=== PATIENT | female | born 1975 | race Caucasian/White ===

== ENCOUNTER → 2024-04-09 08:22 | Outpatient (REF) | payer OTHER, SELFPAY | LOC: HWRAD 08:22 | PROVIDERS: ATTENDING PHYSICIAN Internal Medicine; FAMILY PHYSICIAN Emergency Medicine | DX: K90.0 Celiac disease (principal); E55.9 Vitamin D deficiency, unspecified | CPT/HCPCS: 77080 ==

== ENCOUNTER → 2024-04-28 19:25 | Outpatient (REF) | payer OTHER, SELFPAY | LOC: WDC 19:25 | PROVIDERS: ATTENDING PHYSICIAN Obstetrics & Gynecology; FAMILY PHYSICIAN Family Medicine | DX: Z12.31 Encounter for screening mammogram for malignant neoplasm of breast (principal) | CPT/HCPCS: 77063; 77067 ==

== ENCOUNTER → 2024-10-02 10:02 | Outpatient (REF) | payer OTHER, SELFPAY ==
[2024-10-02 14:14] LABS: Hepatitis B Surface Antibody Positive
[2024-10-04 18:25] LABS: Quantiferon Mitogen minus NIL 9.97 IU/mL; Quantiferon NIL 0.03 IU/mL; Quantiferon Plus TB1 minus NIL 0.01 IU/mL (<=0.34); Quantiferon TB Gold Plus Negative (Negative)
== END ==
LOC: OHS 10:02
PROVIDERS: ATTENDING PHYSICIAN Nurse Practitioner Family
DX: Z23 Encounter for immunization (principal)
CPT/HCPCS: 36415; 86480; 86706; 86787

== ENCOUNTER 2025-04-02 02:16 | Emergency (ER) | payer OTHER, SELFPAY ==
[2025-04-02 02:21] VITALS: BP 160/108
[2025-04-02 02:37] LABS: Hematocrit 41.8 % (37.0-47.0); Hemoglobin 13.8 g/dL (12.0-16.0); Mean Corp Hgb Conc. 33.0 g/dL (33.0-37.0); Mean Corpuscular Volume 84.8 fL (81.0-99.0); Nucleated Red Blood Cells % 0 %; Platelet Count 311 10^3/uL (130-400); Red Cell Dist. Width 13.2 % (11.5-14.5)
[2025-04-02 03:00] LABS: ALT (SGPT) 30 U/L (0-35); AST (SGOT) 27 U/L (14-36); Albumin 4.7 g/dl (3.5-5.0); Alkaline Phosphatase 57 U/L (38-126); Blood Urea Nitrogen 16 mg/dl (7-17); Calcium 10.2 mg/dl (8.4-10.2); Carbon Dioxide 31 mmol/L (22-30); Chloride 104 mmol/L (98-107); Glucose 114 mg/dl (70-99); Potassium 4.0 mmol/L (3.5-5.1); Sodium 141 mmol/L (135-145); Total Protein 8.2 g/dl (6.3-8.2); eGFR > 60.00
[2025-04-02 03:07] VITALS: BP 153/71
[2025-04-02 03:13] LABS: Troponin I < 0.012 ng/ml
[2025-04-02 03:58] VITALS: BMI 33.4
[2025-04-02 04:00] VITALS: BP 118/63
--- NOTE | 2025-04-02 04:01 | ED.GENMED ---
History of Present Illness
General
Chief Complaint: Blood Pressure Problem
Source: patient
Exam Limitations: none
Time Seen by Provider: 04/02/25 03:05
Nursing documentation reviewed up to this point in time: agreed with
History of Present Illness
History of Present Illness:
49-year-old female past medical history of high blood pressure presenting to the emergency department today with concerns of elevated blood pressure today. She felt jittery at work and checked her blood pressure which was elevated to 170s over low
100s. She then rechecked her pressure multiple times which was ongoing the elevated and presented to an urgent care. She had elevated number there as well. She was prescribed lisinopril and took the first dose tonight. Tonight she has had
ongoing vague symptoms and a short episode of chest discomfort described as achiness to the left side. She denies specifically any shortness of breath nausea vomiting numbness weakness.
Review of Systems
Review of Systems
Allergies reviewed?: Yes
All Other Systems: ROS reviewed and negative except as documented in HPI and ROS
Phy Exam
Physical Exam
Physical Exam:
GENERAL: Alert , in no apparent distress
EYE: pupils equal and reactive
NECK: Supple, no significant adenopathy.
ENT: o/p clr, mmm.
CARDIAC: Regular rate and rhythm .
LUNGS: Clear breath sounds bilaterally, no acute respiratory distress, no wheezes/rales/rhonchi
ABDOMEN: Soft, without focal tenderness, no r/g, no cvat
NEUROLOGICAL: Alert and oriented, no focal neuro deficits
SKIN: Warm and dry, skin intact.
MUSCULOSKELETAL: No edema, well perfused.
PSYCH: Normal and appropriate interaction.
Course
Orders/Labs/Results
Orders:
Orders
04/02/25 02:16
Electrocardiogram (*1) Urgent
Reason for Study: Chest Pain
EKG- Treatment ONCE
04/02/25 02:30
Complete Blood Count/With Diff Urgent
Comprehensive Metabolic Panel Urgent
TSH Reflex To Free T4 Urgent
Comment: ADD ON
Troponin I Urgent
04/02/25 03:06
Chest [CR Chest - 2 Views ] Urgent
Comment:
Reason For Exam: cp
04/02/25 03:21
Add On- LAB Urgent
Tests Added?: tsh free t4
Abnormal Lab Results
04/02/25
02:30
Absolute Monos (auto) 0.7 H 10^3/uL
(0.1-0.6)
Eosinophils % 7.1 H %
(0-6)
Carbon Dioxide 31 H mmol/L
(22-30)
Glucose 114 H mg/dl
(70-99)
04/02/25 02:30
04/02/25 02:30
Vital Signs
Initial and Last Documented VS:
Initial Vital Signs
Temp Pulse Resp BP Pulse Ox
98.5 F 92 20 160/108 99
04/02/25 02:21 04/02/25 02:21 04/02/25 02:21 04/02/25 02:21 04/02/25 02:21
Last Documented Vital Signs
Temp Pulse Resp BP Pulse Ox
98.5 F 77 16 121/74 96
04/02/25 02:21 04/02/25 05:00 04/02/25 05:00 04/02/25 05:00 04/02/25 05:13
MDM/Problems Addressed
MDM/Problems Addressed:
49-year-old female presenting with concerns of vague symptoms throughout the day today with elevated blood pressure readings as well. Went to urgent care was prescribed lisinopril and this medication once today. Has been feeling 'jittery'. On
arrival here blood pressure elevated to 160s over low 100s. This was in the 140s over 70s. Patient in no distress with normal heart and lung exam labs are unremarkable troponin negative chest x-ray normal and EKG normal. Labs unremarkable
troponin negative no evidence of any emergent process stable for outpatient follow-up. Return precautions given.
*Pulse Oximetry
SaO2: 99
Oxygen Mode of Delivery: Room air
Patient hypoxic: no (96)
*Critical Care Note
Total Time (30-74mins, 75-104mins- exclusive of procedures): Not Applicable
ED Attending Note
-
Portions of this chart may have been created with voice recognition software.� Occasional wrong word or��sound alike� substitutions may have occurred due to the inherent limitations of voice recognition software.
Discharge Plan
Departure
Patient Disposition: Home (Routine Discharge)
Date of Disposition: 04/02/25
Time of Disposition: 05:51
Patient with high blood pressure during this ER visit?: No
Condition: Good
Covid-19: Not Applicable
Discharge Problem:
High blood pressure, Chest pain
Instructions: Chest Pain DCA Follow Up
Referrals:
Zev Rowan DO [Family Provider, Family Practice]
Activity Restrictions/Additional Instructions:
You came to the emergency department today with concerns of an elevated blood pressure and additional symptoms. Here you have a reassuring assessment. 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 Return for any worsening, new
or concerning symptoms
Interventions
Interventions:
*Risk Screen - Suicide Last Done: 04/02/25 02:24
*General Assessment Last Done: 04/02/25 02:24
*Neglect/Abuse Screening Last Done: 04/02/25 02:24
*ED- Fall Risk Assessment Last Done: 04/02/25 03:49
*ED COVID-19 Vaccine History Last Done: 04/02/25 02:24
ED- Cardiac Assessment Last Done: 04/02/25 03:49
ED- Neurological Assessment Last Done: 04/02/25 03:49
ED- Pulmonary Assessment Last Done: 04/02/25 03:49
Discharge Date and Time
Print Language: GREEK
[2025-04-02 05:00] VITALS: BP 121/74
[2025-04-02 06:00] VITALS: BP 124/71
== END 2025-04-02 06:30 | disposition home or self-care (01) ==
LOC: EMR 02:16
PROVIDERS: EMERGENCY PHYSICIAN Student in an Organized Health Care Education/Training Program; FAMILY PHYSICIAN Family Medicine
DX: R07.89 Other chest pain (principal); I10 Essential (primary) hypertension
CPT/HCPCS: 99285; 71046; 80053; 84443; 84484; 85025; 93005

== ENCOUNTER → 2025-04-07 07:20 | Outpatient (REF) | payer OTHER, SELFPAY | LOC: RAD 07:20 | PROVIDERS: ATTENDING PHYSICIAN Family Medicine | DX: R22.1 Localized swelling, mass and lump, neck (principal) | CPT/HCPCS: 76536 ==

== ENCOUNTER → 2025-04-14 07:10 | Outpatient (REF) | payer OTHER, SELFPAY | LOC: RAD 07:10 | PROVIDERS: ATTENDING PHYSICIAN Family Medicine | DX: R59.9 Enlarged lymph nodes, unspecified (principal); I88.9 Nonspecific lymphadenitis, unspecified | CPT/HCPCS: 70491; Q9967 ==

== ENCOUNTER → 2025-05-03 19:30 | Outpatient (REF) | payer OTHER, SELFPAY | LOC: WDC 19:30 | PROVIDERS: ATTENDING PHYSICIAN Family Medicine | DX: Z12.31 Encounter for screening mammogram for malignant neoplasm of breast (principal) | CPT/HCPCS: 77063; 77067 ==

== ENCOUNTER 2025-07-20 06:41 | Day surgery (SDC) | payer OTHER, SELFPAY | END 2025-07-20 11:58 | disposition home or self-care (01) | LOC: GI 06:41 | PROVIDERS: ATTENDING PHYSICIAN Internal Medicine | DX: R12 Heartburn (principal); K25.9 Gastric ulcer, unspecified as acute or chronic, without hemorrhage or perforation; K44.9 Diaphragmatic hernia without obstruction or gangrene; K90.0 Celiac disease; K22.89 Other specified disease of esophagus; K29.50 Unspecified chronic gastritis without bleeding; K20.0 Eosinophilic esophagitis | CPT/HCPCS: 43239; 88305; 88342 ==